=== PATIENT | male | born 1945 | race Caucasian/White ===

== ENCOUNTER 2025-09-08 07:11 | Emergency (ER) | payer MEDICARE, BC, SELFPAY ==
[2025-09-08 07:14] VITALS: BMI 30.9
[2025-09-08 07:23] VITALS: BP 166/88; PULSE 87; RESP 17; TEMP 36.4; O2SAT 96
--- NOTE | 2025-09-08 08:15 | PD.EDNV ---
Nausea/Vomit./Diarrhea-RME/HPI General Chief complaint: Nausea/Vomiting/Diarrhea Stated complaint: N/V, BLACK, WATERY STOOL DIARRHEA, ABD CRAMPS Time Seen by Provider: 09/08/25 07:41 Arrival date/time: 09/08/25 07:11 RME / HPI RME / HPI Narrative: 08:05h MAIN ED EVALUATION - Dr. Mattson 79-year-old male presenting with abdominal pain, nausea, vomiting, and diarrhea. Patient reports multiple episodes of watery, black stools with abdominal cramping, which have improved since last night. He has had decreased oral intake and decreased stooling for approximately one week, following dental extraction of 13 teeth about a week ago. Temporomandibular joint pain and headaches have been present since the dental procedure. Pre-arrival treatments included ibuprofen taken every 4?6 hours since yesterday morning for pain along with acetaminophen recommended by dentist yesterday morning. Was given a laxative by his last night to facilitate stooling prior to symptom onset. Past medical history includes coronary artery disease status post percutaneous coronary intervention, atrial flutter, congestive heart failure, hypertension, hyperlipidemia, hypothyroidism, appendicitis, and shingles. Is on eliquis and plavix. Patient denies other acute symptoms. Related Data Home Medications ?Medication ?Instructions ?Recorded ?Confirmed tamsulosin 0.4 mg capsule 0.4 mg PO DAILY 11/26/22 11/08/23 atorvastatin 80 mg tablet (Lipitor) 80 mg PO QDAY 07/26/23 11/08/23 sacubitril 24 mg-valsartan 26 mg 24 tab PO QDAY 07/26/23 11/08/23 tablet (Entresto) apixaban 2.5 mg tablet (Eliquis) 2.5 mg PO BID 11/08/23 11/08/23 furosemide 40 mg tablet (Lasix) 40 mg PO DAILY 11/08/23 11/08/23 metoprolol succinate 100 mg 100 mg PO QDAY 11/08/23 11/08/23 tablet,extended release 24 hr Previous Rx's ?Medication ?Instructions ?Recorded clopidogrel 75 mg tablet (Plavix) 75 mg PO QDAY 1 month #30 tabs 11/28/22 famotidine 40 mg tablet 40 mg PO BID PRN stomach upset #20 11/12/25 tabs omeprazole 40 mg capsule,delayed 40 mg PO QDAY #5 caps 09/08/25 release prochlorperazine maleate 5 mg 5 mg PO TID PRN nausea and 09/08/25 tablet (Compazine) headache #15 tabs tramadol 50 mg tablet 50 mg PO Q8H PRN pain #10 tabs 09/08/25 Allergies Allergy/AdvReac Type Severity Reaction Status Date / Time No Known Allergies Allergy Verified 09/08/25 07:18 Review of Systems Review of Systems Systems Reviewed: All systems reviewed, normal except as documented Past Medical History Past Medical History CARDIAC: Positive Cardiac Disorders (HTN), Atrial Fibrillation, Angina, Coronary Artery Disease, Hypercholesterolemia, Congestive Heart Failure and Hypertension GENITOURINARY: Positive Genitourinary Disorders and Benign Prostatic Hyperplasia MUSCULOSKELETAL: Positive Musculoskeletal Disorders ENDOCRINE: Positive Endocrine Disorders and Hypothyroidism PSYCHO/SOCIAL: Positive Anxiety OTHER HISTORY: Positive Blood Transfusions, Radiation Therapy (skin cancer 30 yrs ago) and Cancer Surgical History SURGICAL: Positive Cardiac Surgery, Coronary Artery Bypass Graft, Coronary Stent, Cardiac Catheterization, Angiogram and Abdominal Surgery Social History SMOKING STATUS: Never smoker Past Medical History Comments PMH COMMENT: - Coronary artery disease status post percutaneous coronary intervention - Atrial flutter - Congestive heart failure - Hypertension - Hyperlipidemia - Hypothyroidism - Appendicitis - Shingles ED Exam Narrative Physical exam: General: Comfortable, lying down, no acute distress. Eyes: Appear normal with no scleral icterus. HENT: Atraumatic head; extraocular movements intact bilaterally. Neck: Atraumatic, supple. Cardiac: Normal rate and rhythm. Respiratory: Lungs clear to auscultation; no respiratory distress. Abdomen: Soft, non-distended; mild tenderness in bilateral upper abdomen; no rebound; easily reducible epigastric incisional hernia. MS: Extremities atraumatic. No edema, no calf tenderness to palpation. Skin: Warm, dry, intact. Neurologic: No altered mental status, speech is fluent. No acute neuro deficits. Psychological: Cooperative and participatory with examination. Course Course Course Narrative: 1100h: Patient's labs reviewed with no significant acute concerning abnormalities noted. CT reviewed as well with no bowel obstruction noted though gallbladder does appear to be distended. Will obtain gallbladder ultrasound and reevaluate. 1315h: Gallbladder ultrasound is negative for acute process. Checked on patient he is vitally stable and appears in no acute distress at this time. Believe okay for discharge home. Have advised on bland diet as well as avoidance of NSAIDs for home. He is stable for discharge at this time with recommendations for outpatient follow-up in the next few days for recheck. Quality Measures none Orders Category Date Time Status CT Screening NOW Care 09/08/25 08:20 Active Insert IV STAT Care 09/08/25 08:11 Active NPO STAT Care 09/08/25 08:[address] abdomen pelvis w con Stat Exams 09/08/25 08:20 Completed US gall bladder Stat Exams 09/08/25 11:01 Completed CBC Stat Lab 09/08/25 08:27 Completed CRP [C-Reactive Protein] Stat Lab 09/08/25 08:27 Completed Comprehensive Metabolic Panel Stat Lab 09/08/25 08:27 Completed Lactate (Lactic Acid) Stat Lab 09/08/25 08:27 Completed Lipase Stat Lab 09/08/25 08:27 Completed Magnesium Stat Lab 09/08/25 08:27 Completed Urinalysis, C/S if Indicated Stat Lab 09/08/25 13:11 Received Acetaminophen Ivpb [Ofirmev Inj] Med 09/08/25 08:12 Discontinued 1,000 mg in 100 ml IV NOW DiphenhydrAMINE INJ [Benadryl Inj] Med 09/08/25 08:12 Discontinued 25 mg IVP X1 ONE Metoclopramide Inj [Reglan Inj] Med 09/08/25 08:12 Discontinued 10 mg IVP X1 ONE Pantoprazole Inj [Protonix Inj] Med 09/08/25 08:12 Discontinued 40 mg IVP X1 ONE mg Hyd/Al Hyd/Mikey Susp [Maalox Susp] Med 09/08/25 08:14 Discontinued 30 ml PO X1 ONE Vital Signs Vital signs: Vital Signs Temperature 97.6 F 09/08/25 07:23 Pulse Rate 87 09/08/25 07:23 Respiratory Rate 17 09/08/25 07:23 Blood Pressure 166/88 H 09/08/25 07:23 Pulse Oximetry (%) 96 09/08/25 07:23 Oxygen Delivery Method Room Air 09/08/25 07:23 Pulse ox is 96% on room air which is adequate. Nausea/Vomiting/Diarrhea MDM Narrative MDM Narrative:: This 79-year-old male with a history of coronary artery disease post-PCI, atrial flutter, congestive heart failure, hypertension, and recent dental extraction presents with abdominal pain, melena, nausea, vomiting, and diarrhea. He has been taking ibuprofen frequently and received a laxative last night, after which he developed multiple episodes of watery, black stools and abdominal cramping. Symptoms have improved since last night but prompted ED evaluation today. Physical exam reveals mild tenderness in the bilateral upper abdomen, a reducible epigastric incisional hernia, and otherwise normal findings. Given his anticoagulation with Eliquis and Plavix, cardiac history, and melena, gastrointestinal bleeding is a primary concern. Differential diagnosis includes peptic ulcer disease, medication-induced gastritis, ischemic colitis, infectious gastroenteritis, and biliary disease. Planned workup includes laboratory studies and flat/upright abdominal X-rays to evaluate for bleeding, obstruction, or other acute abdominal pathology. Antiemetic medication and acetaminophen are planned for symptom control. Disposition will be determined based on diagnostic results and clinical stability, with consideration of his high-risk comorbidities and anticoagulation status. Patient data External records reviewed:: [facility] previous records Clinical information provided by:: patient and family Social determinants that could affect healthcare access:: none Patient has the following chronic illnesses:: coronary artery disease post-PCI, atrial flutter, congestive heart failure, hypertension, and recent dental extraction How is presenting disease/condition affected by chronic disease/condition?: exacerbated by Evaluation data The following diagnostics were reviewed and interpreted by me:: lab results and radiology exam(s) Lab and/or radiology exams considered but not ordered:: None Interpretation Summary: Ordering Physician: Kiersten Mattson MD Date of Service: 09/08/25 Procedure(s): CT abdomen pelvis w con Accession Number(s): [id number] cc: JOANNA CONTRERAS MD; Tramaine Roth MD; Kiersten Mattson MD~ Examination: CT abdomen with intravenous contrast CT pelvis with intravenous contrast 2-D coronal reconstructions 2-D sagittal reconstructions Date and time of exam: September 08, 2025, 0959 hours INDICATIONS: Upper abdominal pain and black stools today. CTDI: vol (mGy) 8.53 DLP: (mGycm) 504 Technique: Multiple axial sections of the abdomen and pelvis have been obtained. 64 slice high-resolution scanner used. 3 mm axial sections have been obtained, post intravenous injection 30 cc [id number] 2-D sagittal, coronal reconstructions obtained. Low dose protocols were performed. One or more of the following dose reduction techniques were used; automated exposure control, adjustment of the mA and/or KV according to patient size, use of iterative reconstruction technique. Findings: Moderate right and mild left pleural fluid No visualized liver or splenic lesion Distended gallbladder No pancreatic or adrenal mass No renal or ureteral calculi, no hydronephrosis Aorta normal size No pericecal inflammatory change No bowel obstruction or diverticulitis Normal seminal vesicles Prostatomegaly mediolateral dimension 4.9 cm Urinary bladder intact Prominent osteopenia IMPRESSION: Distended gallbladder, recommend hepatobiliary sonography follow-up No renal or ureteral calculi, no hydronephrosis No CT findings of appendicitis bowel obstruction or diverticulitis Dictated By:Tramaine Roth MD Signed By:<Electronically signed by Tramaine Roth MD in [place]>09/08/25 1055 Ordering Physician: Kiersten Mattson MD Date of Service: 09/08/25 Procedure(s): US gall bladder Accession Number(s): [id number] cc: JOANNA CONTRERAS MD; Tramaine Roth MD; Kiersten Mattson MD~ Examination: Abdomen sonogram, Limited Date and time of exam: September 08, 2025, 1224 hours INDICATIONS: Distended gallbladder on CT examination today, abdominal pain this week Technique: Real-time chan scale transabdominal sonographic images of the upper abdomen obtained. Findings: Negative for gallstones Normal gallbladder wall 0.3 cm Normal common bile duct 0.5 cm Pancreatic head 3.1 cm Liver 14.8 cm no liver lesions Normal hepatopetal portal venous flow Patent IVC IMPRESSION: Negative for cholelithiasis, negative for cholecystitis Normal common bile duct Dictated By: Tramaine Roth MD Signed By: <Electronically signed by Tramaine Roth MD in [place]> 09/08/25 1255 Medications / Prescriptions Medications / Prescriptions considered but not ordered:: None Medication administrations:: Medication Administration History Discontinued Medications Al Hydrox/Mg Hydrox/Simethicone (Mg Hyd/Al Hyd/Mikey (Maalox Reg) Susp 30 Ml Udc) 30 ml PO X1 ONE Stop: 09/08/25 08:15 Last Admin: 09/08/25 08:31 Dose: 30 ml Documented By: LATRELL Diphenhydramine HCl (Diphenhydramine Inj 50 Mg/Ml Vial) 25 mg IVP X1 ONE Stop: 09/08/25 08:13 Last Admin: 09/08/25 08:26 Dose: 25 mg Documented By: LATRELL Acetaminophen (Ofirmev Inj) 1,000 mg in 100 mls @ 250 mls/hr IV NOW ONE Stop: 09/08/25 08:35 Last Infusion: 09/08/25 10:31 Dose: Infused Documented By: Admin: 09/08/25 09:16 Dose: 250 mls/hr Documented By: LATRELL Metoclopramide HCl (Metoclopramide Inj 5 Mg/Ml Vial 2 Ml) 10 mg IVP X1 ONE; Protocol Stop: 09/08/25 08:13 Last Admin: 09/08/25 08:31 Dose: 10 mg Documented By: LATRELL Pantoprazole Sodium (Pantoprazole Inj 40 Mg Vial) 40 mg IVP X1 ONE Stop: 09/08/25 08:13 Last Admin: 09/08/25 08:31 Dose: 40 mg Documented By: LATRELL See above Consultations Consultation(s) initiated? (list below): No Diagnosis Nausea Differential Diagnosis: other ( peptic ulcer disease, medication-induced gastritis, ischemic colitis, infectious gastroenteritis, and biliary disease) Most likely diagnosis given after review of the tests above:: Acute gastritis, diarrhea (post laxative), headache Admission Indicated Admission indicated?: not indicated Admission Request Was there a request for admission?: No Disposition Plan Disposition Plan: Discharge Discharge Attestation Discharge Attestation: The patient and all family members were given an opportunity to ask questions and understood the discharge instructions. Discharge instructions specifically effects, indications for sooner follow up or return to the emergency department, and the expected course of current diagnosis. Patient condition: Stable Discharge Plan Plan Patient Disposition: HOME (Self Care) Patient condition on transfer: Stable Prescriptions/Referrals Prescriptions/Med Rec: New prochlorperazine maleate [Compazine] 5 mg tablet 5 mg PO TID PRN (Reason: nausea and headache) Qty: 15 0RF famotidine 40 mg tablet 40 mg PO BID PRN (Reason: stomach upset) Qty: 20 0RF tramadol 50 mg tablet 50 mg PO Q8H PRN (Reason: pain) Qty: 10 0RF omeprazole 40 mg capsule,delayed release(DR/EC) 40 mg PO QDAY Qty: 5 0RF No Action Entresto 24-26 mg Tablet 24 tab PO QDAY Rx Instructions: 0.25mg BID atorvastatin [Lipitor] 80 mg Tablet 80 mg PO QDAY tamsulosin 0.4 mg capsule 0.4 mg PO DAILY clopidogrel [Plavix] 75 mg tablet 75 mg PO QDAY 30 Days Qty: 30 2RF furosemide [Lasix] 40 mg Tablet 40 mg PO DAILY metoprolol succinate 100 mg Tablet Extended Release 24 Hr 100 mg PO QDAY Eliquis 2.5 mg Tablet 2.5 mg PO BID Referrals: Joanna Contreras MD [Primary Care Provider] - In 1 week Problem List Clinical Impression: Gastritis Patient/Caregiver Discharge Instructions Education Materials: ED Diet, Tillman (Adult), ED Gastritis (Adult) Additional Instructions: Avoid any further ibuprofen/Advil, naproxen, Aleve, other similar medications at this time. Avoid foods that may irritate your stomach and eat more of a bland diet for the next several days. Follow-up with your primary doctor within the next several days for reevaluation. May take Tylenol for pain. If necessary may also take as needed tramadol, but be aware that this medication may make you sleepy and may at times cause constipation. Do not combine with norco. Some general health principles that can help you are the NEW START principles: Nutrition (eat a plant-based diet, avoiding meats in general, avoiding highly processed foods) Exercise (Daily exercise/walks as tolerated) Water (Drink adequate fresh water to maintain hydration, concentrating on water rather than on soda, coffee, tea, juice, etc for hydration) [place] (Spend time - 15-20 minutes or so with skin exposed in the sales research analyst and late evening sun for Vitamin D health benefits) [place] (Avoid alcohol, illicit drugs, caffeinated beverages, smoking, etc) Air (Deep breathing exercises in the early mornings in fresh air) Rest (Adequate rest at night, going to bed a few hours before midnight and avoiding all screens/television/loud music in the time right before going to bed, also avoiding heavy meals just prior to going to bed) Trust in God (Spend time daily in Bible study and prayer - health benefits in contemplation of God's true character) Additional resources that can benefit: [email or web address], look under resources and seminars. Another good website is [email or web address] Print Language: Indonesian Stand Alone Forms: Lizette Award Info., Patient Portal Info Letter
--- NOTE | 2025-09-08 08:20 | XR_ITS ---
Examination: CT abdomen with intravenous contrast CT pelvis with intravenous contrast 2-D coronal reconstructions 2-D sagittal reconstructions Date and time of exam: September 08, 2025, 0959 hours INDICATIONS: Upper abdominal pain and black stools today. CTDI: vol (mGy) 8.53 DLP: (mGycm) 504 Technique: Multiple axial sections of the abdomen and pelvis have been obtained. 64 slice high-resolution scanner used. 3 mm axial sections have been obtained, post intravenous injection 30 cc [id number]-300 2-D sagittal, coronal reconstructions obtained. Low dose protocols were performed. One or more of the following dose reduction techniques were used; automated exposure control, adjustment of the mA and/or KV according to patient size, use of iterative reconstruction technique. Findings: Moderate right and mild left pleural fluid No visualized liver or splenic lesion Distended gallbladder No pancreatic or adrenal mass No renal or ureteral calculi, no hydronephrosis Aorta normal size No pericecal inflammatory change No bowel obstruction or diverticulitis Normal seminal vesicles Prostatomegaly mediolateral dimension 4.9 cm Urinary bladder intact Prominent osteopenia IMPRESSION: Distended gallbladder, recommend hepatobiliary sonography follow-up No renal or ureteral calculi, no hydronephrosis No CT findings of appendicitis bowel obstruction or diverticulitis
[2025-09-08] MEDS: METOCLOPRAMIDE INJ 5 MG/ML VIAL 2 ML 10 MG IVP (08:31)
[2025-09-08] MEDS: MG HYD/AL HYD/SIME (Maalox Reg) SUSP 30 ML UDC PO (08:31)
[2025-09-08 08:37] LABS: Lactate (Lactic Acid) 1.0 mMol/L (0.4-2.0)
[2025-09-08 08:47] LABS: Basophils # (Auto) 0.1 Thou/mm3 (0.0-0.2); Basophils % (Auto) 1 % (0-2.5); Eosinophils # (Auto) 0.3 Thou/mm3 (0.0-0.5); Eosinophils % (Auto) 3 % (0-10); Hematocrit 40.5 % (41.0-53.0); Hemoglobin 13.8 g/dL (13.5-16.0); Immature Granulocytes Auto 0.05 Thou/mm3 (0.00-0.00); Lymphocytes # (Auto) 1.0 Thou/mm3 (1.0-4.8); Lymphocytes % (Auto) 10 % (10-50); Mean Corpuscular HGB Conc 34.1 g/dl (31.0-37.0); Mean Corpuscular Hemoglobin 32.6 pg (25.0-35.0); Mean Corpuscular Volume 96 fL (80-100); Monocytes # (Auto) 0.8 Thou/mm3 (0.0-0.8); Monocytes % (Auto) 8 % (0-12); Neutrophils # (Auto) 7.7 Thou/mm3 (1.8-7.7); Neutrophils % (Auto) 78 % (37-80); Nucleated Red Blood Cell # 0.00 Thou/mm3 (0.00-0.00); Nucleated Red Blood Cell % 0 /100 WBC (0); Platelet Count 238 Thou/mm3 (140-440); RDW Standard Deviation 49.2 fL (35.1-43.9); Red Blood Count 4.23 Miln/mm3 (4.50-5.90); White Blood Count 9.9 Thou/mm3 (3.8-10.6)
[2025-09-08 09:11] LABS: Alanine Aminotransferase 22 U/L (10-49); Albumin, Serum 4.2 gm/dL (3.4-4.8); Albumin/Globulin Ratio 2.2 (1.2-2.2); Alkaline Phosphatase 81 U/L (46-116); Anion Gap 9 (7-16); Aspartate Amino Transferase 21 U/L (0-34); BUN/Creatinine Ratio 10 Ratio (12-20); Bilirubin,Total 1.0 mg/dL (0.3-1.2); Blood Urea Nitrogen 14 mg/dL (9-23); C-Reactive Protein < 0.5 mg/dL (0.0-0.9); Calcium 9.0 mg/dL (8.3-10.6); Calcium (Corrected) 9.0 mg/dL (8.5-10.1); Carbon Dioxide 27.3 mMol/L (20.0-31.0); Chloride 108 mMol/L (98-107); Creatinine (Component) 1.4 mg/dL (0.6-1.3); Estimated Creatinine Clearance 41.9 mL/min (>60); Globulin 1.9 gm/dL (2.3-3.5); Glucose 101 mg/dL (74-106); Lipase 24 U/L (12-53); Magnesium 2.5 mg/dL (1.6-2.6); Osmolality,Calculated 287 (275-295); Potassium 4.4 mMol/L (3.4-5.1); Sodium 144 mMol/L (136-145); Total Protein 6.1 gm/dL (5.7-8.2); eGFR 51 See Note
[2025-09-08] MEDS: ACETAMINOPHEN IVPB 1,000 MG/100 ML VIAL 250 MG IV (09:16)
--- NOTE | 2025-09-08 11:01 | XR_ITS ---
Examination: Abdomen sonogram, Limited Date and time of exam: September 08, 2025, 1224 hours INDICATIONS: Distended gallbladder on CT examination today, abdominal pain this week Technique: Real-time chan scale transabdominal sonographic images of the upper abdomen obtained. Findings: Negative for gallstones Normal gallbladder wall 0.3 cm Normal common bile duct 0.5 cm Pancreatic head 3.1 cm Liver 14.8 cm no liver lesions Normal hepatopetal portal venous flow Patent IVC IMPRESSION: Negative for cholelithiasis, negative for cholecystitis Normal common bile duct
[2025-09-08 12:04] VITALS: BP 137/76; PULSE 60; RESP 18; TEMP 36.7; O2SAT 95
[2025-09-08 13:21] LABS: Collection Type, Urine Clean Catch
[2025-09-08 13:39] LABS: Bilirubin,Urine Negative (Negative); Blood,Urine 2+ (Negative); Clarity,Urine Clear (Clear/Hazy); Color,Urine Yellow (Lt Yel-Yel); Culture Indicated,Urine Not Indicated; Glucose, Urine Negative (Negative); Ketones,Urine Negative (Negative); Leukocyte Esterase,Urine Negative (Negative); Nitrite,Urine Negative (Negative); PH,Urine 7.0 (5.0-7.0); Protein,Urine Trace (Neg - Trace); RBC,Urine 28 /hpf (0-3); Squamous Epithelial Cell,Urine < 1 /hpf (0-5); Urobilinogen,Urine Negative mg/dL (0.0-1.0); WBC,Urine 2 /hpf (0-5)
[2025-09-08 13:42] LABS: Specific Gravity,Urine 1.010 (1.001-1.035)
[2025-09-08 13:52] VITALS: BP 128/68; PULSE 62; RESP 16; TEMP 36.6; O2SAT 91
== END 2025-09-08 14:05 | disposition home or self-care (01) ==
PROVIDERS: Emergency Provider Family Medicine; PCP Internal Medicine
DX: K29.70 Gastritis, unspecified, without bleeding (principal); E03.9 Hypothyroidism, unspecified; E78.5 Hyperlipidemia, unspecified; I11.0 Hypertensive heart disease with heart failure; I25.10 Atherosclerotic heart disease of native coronary artery without angina pectoris; Z95.1 Presence of aortocoronary bypass graft; Z79.01 Long term (current) use of anticoagulants
CPT/HCPCS: 36415; 74177; 76705; 80053; 81001; 83605; 83690; 83735; 85025; 86140; 96365; 96375; 99284; A4649; J0131; J1200; J2470; J2765; Q9967; A9270